=== PATIENT | male | born 1990 | race Caucasian/White ===

== ENCOUNTER 2022-02-16 09:11 | Emergency (ER) | payer BC ==
--- NOTE | 2022-02-16 09:47 | ED ---
General Adult HPI - General Chief complaint: Abdominal Pain Stated complaint: Left sided ABD Pain Time Seen by Provider: 02/16/22 09:26 Source: patient Mode of arrival: ambulatory Limitations: no limitations - History of Present Illness Initial comments: Dictation was produced using [employer] dictation software. please excuse any grammatical, word or spelling errors. Chief Complaint: 31-year-old male with past medical history hypertension presents with left lower quadrant abdominal pain History of Present Illness: 31-year-old male presents with 2 day history of left lower quadrant abdominal pain. Patient reports that her symptoms began yesterday. States it's to the left lower quadrant. Does feel worsening symptoms with certain positions. Denies any abnormal bulges. Patient denies any chills or fevers does report feeling hot. He had a bout of diarrhea earlier. Patient has no history of diverticulitis. The ROS documented in this emergency department record has been reviewed and confirmed by me. Those systems with pertinent positive or negative responses have been documented in the HPI. All other systems are other negative and/or noncontributory. PHYSICAL EXAM: General Impression: Alert and oriented x3, not in acute distress HEENT: Normocephalic atraumatic, extra-ocular movements intact, pupils equal and reactive to light bilaterally, mucous membranes moist. Cardiovascular: Heart regular rate and rhythm Chest: Able to complete full sentences, no retractions, no tachypnea Abdomen: abdomen soft, palpatory tenderness to the left lower quadrant, non- distended, no organomegaly Musculoskeletal: Pulses present and equal in all extremities, no peripheral edema Motor: no focal deficits noted Neurological: CN II-XII grossly intact, no focal motor or sensory deficits noted Skin: Intact with no visualized rashes Psych: Normal affect and mood ED course:31-year-old male presents emergency department for acute left lower quadrant abdominal pain. Clinical presentation suspicious for diverticulitis. Vital signs upon arrival are within acceptable limits. Laboratory evaluation obtained. CBC, metabolic panel is unremarkable. Computed tomography scan of the abdomen and pelvis shows suggesting acute diverticulitis versus colitis. Patient given oral antibiotics will be discharge. He is well- appearing at the bedside upon reevaluation at 11:10 AM. Patient's well- appearing. - Related Data Previous Rx's Medication Instructions Recorded Amoxic-Pot Clav 875-125Mg 1 tab PO BID 10 Days #20 tab 02/16/22 [Augmentin 875-125] Allergies Allergy/AdvReac Type Severity Reaction Status Date / Time No Known Allergies Allergy Verified 02/16/22 09:20 Review of Systems ROS Statement: Those systems with pertinent positive or pertinent negative responses have been documented in the HPI. ROS Other: All systems not noted in ROS Statement are negative. Past Medical History Past Medical History: Hypertension History of Any Multi-Drug Resistant Organisms: None Reported Past Surgical History: No Surgical Hx Reported Past Psychological History: No Psychological Hx Reported Smoking Status: Never smoker Past Alcohol Use History: None Reported Past Drug Use History: None Reported General Exam Limitations: no limitations Course Vital Signs 02/16/22 09:17 Temperature 98.3 F Pulse Rate 93 Respiratory 16 Rate Blood Pressure 132/80 O2 Sat by Pulse 98 Oximetry Medical Decision Making - Lab Data Result diagrams: 02/16/22 09:48 02/16/22 09:48 Lab Results 02/16/22 02/16/22 Range/Units 09:48 09:48 WBC 8.6 (3.8-10.6) k/uL RBC 5.02 (4.30-5.90) m/uL Hgb 15.7 (13.0-17.5) gm/dL Hct 48.3 (39.0-53.0) % MCV 96.3 (80.0-100.0) fL MCH 31.3 (25.0-35.0) pg MCHC 32.5 (31.0-37.0) g/dL RDW 13.3 (11.5-15.5) % Plt Count 304 (150-450) k/uL MPV 7.8 Neutrophils % 64 % Lymphocytes % 27 % Monocytes % 4 % Eosinophils % 2 % Basophils % 2 % Neutrophils # 5.5 (1.3-7.7) k/uL Lymphocytes # 2.3 (1.0-4.8) k/uL Monocytes # 0.4 (0-1.0) k/uL Eosinophils # 0.2 (0-0.7) k/uL Basophils # 0.2 (0-0.2) k/uL Sodium 141 (137-145) mmol/L Potassium 4.0 (3.5-5.1) mmol/L Chloride 103 (98-107) mmol/L Carbon Dioxide 25 (22-30) mmol/L Anion Gap 13 mmol/L BUN 11 (9-20) mg/dL Creatinine 0.69 (0.66-1.25) mg/dL Est GFR (CKD-EPI)AfAm >90 (>60 ml/min/1.73 sqM) Est GFR (CKD-EPI)NonAf >90 (>60 ml/min/1.73 sqM) Glucose 113 H (74-99) mg/dL Calcium 9.2 (8.4-10.2) mg/dL Total Bilirubin 0.8 (0.2-1.3) mg/dL AST 30 (17-59) U/L ALT 51 H (4-49) U/L Alkaline Phosphatase 100 (38-126) U/L Total Protein 7.6 (6.3-8.2) g/dL Albumin 4.5 (3.5-5.0) g/dL Disposition Clinical Impression: Diverticulitis Disposition: HOME SELF-CARE Condition: Good Instructions (If sedation given, give patient instructions): Diverticulitis (ED) Prescriptions: Amoxic-Pot Clav 875-125Mg [Augmentin 875-125] 1 tab PO BID 10 Days #20 tab Is patient prescribed a controlled substance at d/c from ED?: No Referrals: Abner Holcomb DO [Primary Care Provider] - 1-2 days Time of Disposition: 11:10
[2022-02-16 10:11] LABS: Basophils # (A) 0.2 k/uL (0-0.2); Basophils % (A) 2 %; Eosinophils # (A) 0.2 k/uL (0-0.7); Eosinophils % (A) 2 %; HCT 48.3 % (39.0-53.0); HGB 15.7 gm/dL (13.0-17.5); Lymphocytes # (A) 2.3 k/uL (1.0-4.8); Lymphocytes % (A) 27 %; MCH 31.3 pg (25.0-35.0); MCHC 32.5 g/dL (31.0-37.0); MCV 96.3 fL (80.0-100.0); Mean Platelet Volume 7.8; Monocytes # (A) 0.4 k/uL (0-1.0); Monocytes % (A) 4 %; Neutrophils # (A) 5.5 k/uL (1.3-7.7); Neutrophils % (A) 64 %; Platelet Count 304 k/uL (150-450); RBC 5.02 m/uL (4.30-5.90); RDW 13.3 % (11.5-15.5); WBC 8.6 k/uL (3.8-10.6)
[2022-02-16 10:22] LABS: ALT 51 U/L (4-49); AST 30 U/L (17-59); African American GFR (CKD) >90 (>60 ml/min/1.73 sqM); Albumin 4.5 g/dL (3.5-5.0); Alkaline Phosphatase 100 U/L (38-126); Anion Gap 13 mmol/L; Blood Urea Nitrogen 11 mg/dL (9-20); Calcium 9.2 mg/dL (8.4-10.2); Carbon Dioxide 25 mmol/L (22-30); Chloride 103 mmol/L (98-107); Glucose 113 mg/dL (74-99); Non-African American GFR(CKD) >90 (>60 ml/min/1.73 sqM); Sodium 141 mmol/L (137-145); Total Bilirubin 0.8 mg/dL (0.2-1.3); Total Protein 7.6 g/dL (6.3-8.2)
--- NOTE | 2022-02-16 10:59 | CT ---
EXAMINATION TYPE: CT abdomen pelvis w con CT DLP: 1327.1 mGycm, Automated exposure control for dose reduction was used. DATE OF EXAM: 02/16/2022 10:25 AM COMPARISON: None. CLINICAL INDICATION:Male, 31 years old with history of LLQ abdominal pain, suspect diverticulitis; LL Q pain TECHNIQUE: Standard CT of the abdomen and pelvis following the administration of 100 cc of Isovue 3 00 IV contrast material. Coronal and sagittal reformats were performed. FINDINGS: LOWER CHEST: Unremarkable ABDOMEN LIVER: Diffusely hypoattenuating parenchyma. Regions of focal fatty sparing adjacent to the gallbladd er fossa. GALLBLADDER AND BILE DUCTS: Unremarkable. PANCREAS: Unremarkable. SPLEEN: Top end of normal size measuring 13 cm in craniocaudal dimension. ADRENAL GLANDS: Unremarkable. KIDNEYS AND URETERS: No evidence of hydronephrosis. Nonobstructive left renal calculi with largest in the inferior pole measuring up to 4 mm. The kidneys enhance symmetrically without suspicious focal l esion. PELVIS BLADDER: Under distended, limiting evaluation. REPRODUCTIVE: Unremarkable. ABDOMEN & PELVIS STOMACH AND BOWEL: Small hiatal hernia, duodenum is unremarkable. Descending colon wall thickening leiva rrounding fat stranding (series 201, image 59). No definitive diverticula site of fat stranding. No p ericolonic abscess. Scattered colonic diverticula. No evidence of bowel obstruction. PERITONEUM: No evidence of pneumoperitoneum or free fluid. Left lower quadrant mesentery haziness. VASCULATURE: No evidence of aortic aneurysm. MUSCULOSKELETAL: No acute osseous abnormalities LYMPH NODES: No gross evidence for lymphadenopathy. SOFT TISSUE/ABDOMINAL WALL: Tiny fat filled umbilical hernia. IMPRESSION: 1. Descending colon thickening and surrounding fat stranding. Additional scattered colonic diverticu la. Findings suggest uncomplicated acute diverticulitis/colitis. No pericolonic abscess. 2. Left lower quadrant mesenteric haziness which may be reactive to #1 versus mesenteric panniculiti s versus other etiologies. 3. Nonobstructive left renal calculi. 4. Hepatic steatosis.
[2022-02-16 11:42] VITALS: BP 131/75; PULSE 73; RESP 18; TEMP 98.4
--- NOTE | 2022-02-17 13:23 | ED ---
Medical Decision Making - Lab Data Result diagrams: 02/16/22 09:48 02/16/22 09:48 Lab Results 02/16/22 02/16/22 Range/Units 09:48 09:48 WBC 8.6 (3.8-10.6) k/uL RBC 5.02 (4.30-5.90) m/uL Hgb 15.7 (13.0-17.5) gm/dL Hct 48.3 (39.0-53.0) % MCV 96.3 (80.0-100.0) fL MCH 31.3 (25.0-35.0) pg MCHC 32.5 (31.0-37.0) g/dL RDW 13.3 (11.5-15.5) % Plt Count 304 (150-450) k/uL MPV 7.8 Neutrophils % 64 % Lymphocytes % 27 % Monocytes % 4 % Eosinophils % 2 % Basophils % 2 % Neutrophils # 5.5 (1.3-7.7) k/uL Lymphocytes # 2.3 (1.0-4.8) k/uL Monocytes # 0.4 (0-1.0) k/uL Eosinophils # 0.2 (0-0.7) k/uL Basophils # 0.2 (0-0.2) k/uL Sodium 141 (137-145) mmol/L Potassium 4.0 (3.5-5.1) mmol/L Chloride 103 (98-107) mmol/L Carbon Dioxide 25 (22-30) mmol/L Anion Gap 13 mmol/L BUN 11 (9-20) mg/dL Creatinine 0.69 (0.66-1.25) mg/dL Est GFR (CKD-EPI)AfAm >90 (>60 ml/min/1.73 sqM) Est GFR (CKD-EPI)NonAf >90 (>60 ml/min/1.73 sqM) Glucose 113 H (74-99) mg/dL Calcium 9.2 (8.4-10.2) mg/dL Total Bilirubin 0.8 (0.2-1.3) mg/dL AST 30 (17-59) U/L ALT 51 H (4-49) U/L Alkaline Phosphatase 100 (38-126) U/L Total Protein 7.6 (6.3-8.2) g/dL Albumin 4.5 (3.5-5.0) g/dL Disposition Clinical Impression: Diverticulitis Disposition: HOME SELF-CARE Condition: Good Instructions (If sedation given, give patient instructions): Diverticulitis (ED) Prescriptions: Amoxic-Pot Clav 875-125Mg [Augmentin 875-125] 1 tab PO BID 5 Days #10 tab Is patient prescribed a controlled substance at d/c from ED?: No Referrals: Abner Holcomb DO [Primary Care Provider] - 1-2 days Time of Disposition: 13:23
== END 2022-02-16 11:42 | disposition home or self-care (01) ==
LOC: EC 09:11
DX: K57.92 Diverticulitis of intestine, part unspecified, without perforation or abscess without bleeding (principal); I10 Essential (primary) hypertension
CPT/HCPCS: 36415; 80053; 85025; 74177; 99284; Q9967

== ENCOUNTER → 2024-04-12 | Outpatient (CLI) | payer OTHER ==
[2024-04-12 16:08] VITALS: BP 136/85; PULSE 78; RESP 16; TEMP 98
--- NOTE | 2024-04-12 16:55 | P.SLEEP ---
History of Present Illness H&P Date: 04/12/24 34-year-old male patient, he was worried about his sleep quality and the patient is coming in for a sleep evaluation at the sleep clinic. 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 He snores, unsure occasions he is awake to self because of a gas. He has been told by family members that he may stop breathing although is not sure. He goes to bed somewhere between 10 PM and midnight and he gets up 6 AM in the morning. Takes several hours to get prepared as his job starts at 11 AM. On those days that he does not work, he wakes up 8 AM in the morning. He feels that he is only getting only 4 hours of sleep although is not certain. Denies having any nocturia. No grinding of the teeth. No sleep talking. No sleepwalking. No restlessness in lower extremities. He does sweat at night. No palpitation. No heartburn. No chest pain. No shortness of breath. No history of any motor vehicle accidents because of feeling drowsy or sleepy. No naps during the day. He sleeps on his side and back. He drinks no coffee. He drinks Mountain Dew and Coca-Cola during the day. No alcoholism. No substance abuse. His weight has been stable. No sleep paralysis. No hospitalizations. No cataplexy. No other major comorbidities. His current Versailles score is at 9. Review of Systems Constitutional: Reports fatigue Eyes: denies as per HPI, denies blurred vision, denies bulging eye, denies decreased vision, denies diplopia, denies discharge, denies dry eye, denies irritation, denies itching, denies pain, denies photophobia, denies loss of peripheral vision, denies loss of vision, denies tunnel vision/blind spots Ears: deny: decreased hearing, ear discharge, earache, tinnitus Ears, nose, mouth and throat: Reports as per HPI Breasts: absent: as per HPI, gynecomastia Cardiovascular: Reports as per HPI Respiratory: Reports as per HPI, Reports snoring Gastrointestinal: Reports as per HPI Genitourinary: Reports as per HPI Musculoskeletal: Reports as per HPI Musculoskeletal: absent: ankle pain, ankle stiffness, ankle swelling, as per HPI, elbow pain, elbow stiffness, elbow swelling, foot pain, foot stiffness, foot swelling, hand pain, hand stiffness, hand swelling, hip pain, hip stiffness, hip swelling, knee pain, knee stiffness, knee swelling, shoulder pain, shoulder stiffness, shoulder swelling, wrist pain, wrist stiffness, wrist swelling Integumentary: Reports as per HPI Neurological: Reports as per HPI Psychiatric: Reports as per HPI Endocrine: Reports as per HPI Hematologic/Lymphatic: Reports as per HPI Past Medical History Past Medical History: Hypertension Additional Past Medical History / Comment(s): Snoring History of Any Multi-Drug Resistant Organisms: None Reported Past Surgical History: No Surgical Hx Reported Additional Past Surgical History / Comment(s): Dental surgery December 2023 Past Psychological History: ADD/ADHD, Anxiety Additional Psychological History / Comment(s): OCD, pt stated earlier that he has hallucinations during the day - when asked further, he states he has a very imaginative mind. Social pragmatic communication disorder. Smoking Status: Never smoker Past Alcohol Use History: None Reported Past Drug Use History: None Reported - Past Family History Father Family Medical History: Thyroid Disorder Additional Family Medical History / Comment(s): Multiple heart attacks, smoker, lung problems, depression, mental illness, hyper thyroid Mother Family Medical History: Thyroid Disorder Additional Family Medical History / Comment(s): Snoring, - Primary biliary cirrhosis of the liver, mental illness, thyroid (hypo), Medications and Allergies Home Medications Medication Instructions Recorded Confirmed Type Amoxic-Pot Clav 875-125Mg 1 tab PO BID 5 Days #10 tab 02/17/22 Rx [Augmentin 875-125] Allergies Allergy/AdvReac Type Severity Reaction Status Date / Time No Known Allergies Allergy Verified 02/16/22 09:20 Physical Exam Vitals: Vital Signs Temp Pulse Resp BP Pulse Ox 04/12/24 16:05 98.0 F 78 16 136/85 98 Intake and Output 04/12/24 04/12/24 04/12/24 06:59 14:59 22:59 Other: Weight 95.368 kg The patient appeared well nourished and normally developed. Vital signs as documented. Head exam is unremarkable. No scleral icterus or corneal arcus noted. Neck is without jugular venous distension, thyromegaly, or carotid bruits. Carotid upstrokes are brisk bilaterally. Lungs are clear to auscultation and percussion. Cardiac exam reveals the PMI to be normally sized and situated. Rhythm is regular. First and second heart sounds normal. No murmurs, rubs or gallops. Abdominal exam reveals normal bowel sounds, no masses, no organomegaly and no aortic enlargement. Extremities are nonedematous and both femoral and pedal pulses are normal. Examination of the skin revealed no evidence of significant rashes, suspicious appearing nevi or other concerning lesions. Neurologically, the patient is awake and alert and the patient does not have any focal neurological deficit. Cranial nerves are essentially intact. Assessment and Plan Plan: Snoring Poor sleep quality as the patient subjectively reports that he is sleeping only 4 hours. The patient typically spends around 6 to 7 hours in bed. No other comorbidities other than hypertension. Versailles score of 9 Body mass index of 33 Plan Will do a full polysomnography to evaluate the patient's sleep quality and architecture. Will also rule the possibility of underlying sleep apnea/sleep breathing disorder. Fortunately, the patient's functionality at work is preserved. Limited fatigue and hypersomnia with an Versailles score of 9 Maintain good sleep hygiene measures Maintain regular sleep schedule Will make further recommendations based on the results of the polysomnography. Sleep Note - Sleep Data ESS Total: 9 - Sleep Note Sleep Note: Temperature: 98.0 F Pulse Rate: 78 Respiratory Rate: 16 Blood Pressure: 136/85 SpO2: 98 Height: 5 ft 6.7 in Weight: 95.368 kg BMI: Neck Circumference: 18.2
== END ==
LOC: 3 N SLEEP 14:33
PROVIDERS: ATTEND Internal Medicine Critical Care Medicine
CPT/HCPCS: 99211

== ENCOUNTER 2024-04-26 19:45 | Outpatient (CLI) | payer OTHER ==
--- NOTE | 2024-05-10 00:21 | P.PCN ---
Date of Procedure: 04/26/24 Operative Findings: Polysomnography report Date of service is 04/26/2024 Pertinent history 34-year-old male patient, he was worried about his sleep quality and the patient is coming in for a sleep evaluation at the sleep clinic. 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 He snores, unsure occasions he is awake to self because of a gas. He has been told by family members that he may stop breathing although is not sure. He goes to bed somewhere between 10 PM and midnight and he gets up 6 AM in the morning. Takes several hours to get prepared as his job starts at 11 AM. On those days that he does not work, he wakes up 8 AM in the morning. He feels that he is only getting only 4 hours of sleep although is not certain. Denies having any nocturia. No grinding of the teeth. No sleep talking. No sleepwalking. No restlessness in lower extremities. He does sweat at night. No palpitation. No heartburn. No chest pain. No shortness of breath. No history of any motor vehicle accidents because of feeling drowsy or sleepy. No naps during the day. He sleeps on his side and back. He drinks no coffee. He drinks Mountain Dew and Coca-Cola during the day. No alcoholism. No substance abuse. His weight has been stable. No sleep paralysis. No hospitalizations. No cataplexy. No other major comorbidities. His current Norphlet score is at 9. Pertinent physical findings Weight is 210 and a body mass index of 33.9 Technical description The patient was studied using a standard complex polysomnography protocol that included recording of the Lead II EKG, Central, occipital and frontal EEG, right and left outer canthus EOG, submental EMG, right and left anterior tibialis EMG, respiratory airflow by thermocouple and or pressure/flow transducer, respiratory efforts by abdominal and thoracic PVDF belts, oxygen saturation by cable oximetry. Position by observation synchronized the PSG. Equipment used: [employer]. Sleep architecture The total recording duration was 421.5 minutes. The total sleep time was 388.5 minutes. The overall sleep efficiency was 92.2%. The latency to sleep onset was 10.5 minutes. The latency to REM sleep was 183.0 minutes. The sleep architecture was characterized by 11.6% stage I, 79.2% stage II, 0% stage III and 9.3% REM sleep. The total arousal index was 6.2. The wake after sleep onset time was 14.5 minutes. Respiratory analysis The sleep study showed a total of 127 obstructive events of which 100 were obstructive apneas, 9 with mixed apneas and 18 were obstructive hypopneas. The resulting apnea-hypopnea index was 19.3. No central apneic events were noted and the central apnea index was 0. Disease was moderately severe with an AHI of 19.3. Oxygenation analysis The patient's baseline pulse ox while awake was 97%. Lowest oxygen saturation w as 88% and the patient spent approximately 10 minutes of the sleep time below pulse ox of 89%. As such, there was no significant nocturnal oxygen saturations. Sleep continuity summary The patient had a total of 40 arousals with an index of 6.2 and the respiratory arousal index was 1.5 Periodic limb movement events No significant periodic limb movement activity was identified Cardiac summary Average heart rate was 58 with a minimum heart rate of 53 and a maximal heart rate of 67 Assessment Obstructive sleep apnea, moderately severe with an AHI of 19.3. No significant nocturnal oxygen desaturations. Adequate sleep architecture and efficiency Chronic hypersomnia with an Norphlet score of 9 Snoring Poor sleep quality as the patient subjectively reports that he is sleeping only 4 hours. The patient typically spends around 6 to 7 hours in bed. No other comorbidities other than hypertension. Body mass index of 33 Plan Will proceed with CPAP therapy for treatment of moderately severe obstructive sleep apnea. Limited fatigue and hypersomnia with an Norphlet score of 9 and the patient should benefit from CPAP therapy Maintain good sleep hygiene measures Maintain regular sleep schedule Will make further recommendations based on the results of the CPAP titration.
== END 2024-04-27 08:00 | disposition home or self-care (01) ==
LOC: 3 N SLEEP 19:45
PROVIDERS: ATTEND Internal Medicine Critical Care Medicine
DX: G47.33 Obstructive sleep apnea (adult) (pediatric) (principal); G47.10 Hypersomnia, unspecified; I10 Essential (primary) hypertension
CPT/HCPCS: 95810

== ENCOUNTER 2024-07-05 19:47 | Outpatient (CLI) | payer OTHER ==
--- NOTE | 2024-07-17 18:45 | P.PCN ---
Date of Procedure: 07/05/24 Operative Findings: CPAP titration report Date of service is 07/05/2024 Pertinent history 34-year-old male patient, he was worried about his sleep quality and the patient is coming in for a sleep evaluation at the sleep clinic. The patient underwent a screening polysomnography on 04/26/2024 and the patient was found to have moderately severe VALE with an AHI of 19.3. 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 He snores, unsure occasions he is awake to self because of a gas. He has been told by family members that he may stop breathing although is not sure. He goes to bed somewhere between 10 PM and midnight and he gets up 6 AM in the morning. Takes several hours to get prepared as his job starts at 11 AM. On those days that he does not work, he wakes up 8 AM in the morning. He feels that he is only getting only 4 hours of sleep although is not certain. Denies having any nocturia. No grinding of the teeth. No sleep talking. No sleepwalking. No restlessness in lower extremities. He does sweat at night. No palpitation. No heartburn. No chest pain. No shortness of breath. No history of any motor vehicle accidents because of feeling drowsy or sleepy. No naps during the day. He sleeps on his side and back. He drinks no coffee. He drinks Mountain Dew and Coca-Cola during the day. No alcoholism. No substance abuse. His weight has been stable. No sleep paralysis. No hospitalizations. No cataplexy. No other major comorbidities. His current Ackworth score is at 9. The patient is coming in to undergo a CPAP titration study. Pertinent physical findings Weight is 210 and a body mass index of 33.9 Technical description The patient was studied using a standard complex polysomnography protocol that included recording of the Lead II EKG, Central, occipital and frontal EEG, right and left outer canthus EOG, submental EMG, right and left anterior tibialis EMG, respiratory airflow by thermocouple and or pressure/flow transducer, respiratory efforts by abdominal and thoracic PVDF belts, oxygen saturation by cable oximetry. Position by observation synchronized the PSG. Equipment used: [employer]. Stepwise CPAP titration was done to eliminate all obstructive respiratory events Sleep architecture The total recording duration was 420.5 minutes. The total sleep time was 376 minutes. The wake after sleep onset time was 31.5 minutes. The overall sleep efficiency was 89.4% and the latency to sleep onset was 12 minutes and latency to REM sleep was 73.5 minutes. The sleep architecture was characterized by 0.9% stage I, 60.4% stage II, 0.1% stage III, and 38.6% REM sleep. The total arousal index was 1.9 Respiratory analysis The patient was started on CPAP therapy, initially at a pressure of 5 cm of water and the pressure was gradually increased by increments of 1 cm to reach a maximum pressure of 8 cm of water. This was a very successful CPAP titration. The patient encountered a REM rebound. The measurements were done in the supine and nonsupine body position. The measurements were also done in all sleep stages including REM. Pressure of 8 cm of water, there was complete illumination of the obstructive respiratory events and few central events emerged. Nevertheless, the patient was able to maintain oxygen saturation above 90% and the titration itself was quite successful Sleep continuity summary The patient had a total of 12 arousals with an index of 1.9. Respiratory arousal index was 0.2 Periodic limb movements No significant periodic limb movement activity identified Cardiac summary Average heart rate was 65 with a minimum heart rate of 59 and a maximum heart rate of 74 Assessment Obstructive sleep apnea, moderately severe with an AHI of 19.3. The patient underwent a successful CPAP titration Adequate sleep architecture and efficiency Chronic hypersomnia with an Ackworth score of 9 Snoring Poor sleep quality as the patient subjectively reports that he is sleeping only 4 hours. The patient typically spends around 6 to 7 hours in bed. No other comorbidities other than hypertension. Body mass index of 33 Plan Will proceed with CPAP therapy at CPAP pressure of 8 cm of water with a C-Flex of 3 Will provide the patient an AirFit P10 large size nasal pillows Maintain good sleep hygiene measures Maintain regular sleep schedule The patient was seen back in the office in 30 to 90 days to assess clinical response and compliancy will make further recommendations accordingly.
== END 2024-07-06 08:03 | disposition home or self-care (01) ==
LOC: 3 N SLEEP 19:47
PROVIDERS: ATTEND Internal Medicine Critical Care Medicine
DX: G47.33 Obstructive sleep apnea (adult) (pediatric) (principal); G47.9 Sleep disorder, unspecified; R06.83 Snoring; G47.10 Hypersomnia, unspecified; Z68.33 Body mass index [BMI] 33.0-33.9, adult
CPT/HCPCS: 95811